=== PATIENT | female | born 1995 | race Hispanic/Latino ===

== ENCOUNTER 2017-06-04 12:15 | Emergency (ER) | payer BC, OTHER ==
[2017-06-04 14:10] LABS: Bilirubin Negative (Negative); Blood, Urine Moderate (Negative); Clarity CLEAR (Clear); Glucose, Urine (Dipstick) Negative (Negative); Leukocyte Negative (Negative); Nitrite Negative (Negative); Protein, Urine (Dipstick) Negative (Neg-Trace); Urobilinogen 0.2 mg/dL (0.2-1.0); pH, Urine 5.5 (5.0-9.0)
[2017-06-04 14:13] LABS: Bacteria/HPF Rare-Few HPF (None Seen); Hyaline Casts/LPF 0-3 HYALINE CAST LPF (0-3 Hyaline); Pathc Cast-AUWi Flag 0.29 (0-2.49); RBC/HPF 0-3 HPF (0-3); Squamous Epithelial 0-3 HPF (0-3); WBC/HPF 0-3 HPF (0-3)
[2017-06-04 14:19] LABS: #Eosinphils 0.1 thou/uL (0.0-0.7); #Lymphocytes 1.8 thou/uL (1.20-3.40); #Monocytes 0.4 thou/uL (0.11-0.59); #Neutrophils 3.7 thou/uL (1.40-6.50); %Basophils 0.5 % (0.0-1.0); %Eosinophils 1.5 % (0.0-10.0); %Lymphocytes 29.6 % (21.0-51.0); %Neutrophils 62.4 % (42.0-75.0); Hemoglobin 13.4 g/dL (12.0-16.0); Mean Corpuscular HGB CONC 34.2 g/dL (32.0-36.0); Mean Corpuscular Hemoglobin 31.5 pg (27.0-31.0); Mean Corpuscular Volume 92.1 fl (81.0-99.0); Mean Platelet Volume 8.9 fL (7.4-10.4); Platelet Count 193 thou/uL (130-400); RBC Distribution Width 12.1 % (11.5-14.5); Red Blood Cell (RBC) Count 4.26 mill/uL (4.20-5.40); White Blood Cell (WBC) Count 5.9 thou/uL (4.8-10.8)
[2017-06-04 14:42] LABS: ALT (SGPT) 16 U/L (8-55); AST (SGOT) 15 U/L (5-34); Albumin 4.4 g/dL (3.5-5.0); Alkaline Phosphatase 54 U/L (40-150); Anion Gap 8 mmol/L (10-20); BUN (Urea Nitrogen) 12 mg/dL (7.0-18.7); Bilirubin, Total 0.4 mg/dL (0.2-1.2); Calc. Creatinine Clearance 0 mL/min (70-130); Calcium 9.4 mg/dL (7.8-10.44); Carbon Dioxide 25 mmol/L (22-29); Chloride 106 mmol/L (98-107); Estimated GFR-MDRD Greater than 90; Globulin 3.1 g/dL (2.4-3.5); Glucose 99 mg/dL (70-105); Potassium 4.1 mmol/L (3.5-5.1); Protein, Total 7.5 g/dL (6.0-8.3); Sodium 135 mmol/L (136-145)
--- NOTE | 2017-06-04 17:26 | ULT ---
PELVIC ULTRASOUND: Date: 06-04-17 Comparison: 01-26-14 History: Vaginal bleeding. Technique: Multiplanar grayscale sonographic imaging of the pelvis obtained with transabdominal and e ndovaginal imaging. The ovaries are assessed with color flow and spectral analysis. FINDINGS: The right ovary measures 4.2 x 1.7 x 1.9 cm and demonstrates normal blood flow. There is a 1.4 x 1.2 cm cyst within the right ovary. Left ovary measures 2.2 x 1.6 x 1.9 cm and demonstrates normal blood flow. No ovarian or adnexal mass is seen on the left. IMPRESSION: Status post hysterectomy. Both ovaries demonstrate normal blood flow. No dominant ovarian/adnexal mas s or free fluid. POS: [facility]
== END 2017-06-04 18:46 | disposition home or self-care (01) ==
LOC: ERS 12:15
DX: N88.8 Other specified noninflammatory disorders of cervix uteri (principal)
CPT/HCPCS: 36415; 76856; 80053; 81003; 81015; 85025

== ENCOUNTER 2018-02-25 14:54 | Outpatient (CLI) | payer BC ==
--- NOTE | 2018-02-25 16:37 | ULT ---
LEFT BREAST ULTRASOUND: HISTORY: Left-sided breast pain at 11 o'clock position. FINDINGS/IMPRESSION: Sonographic evaluation of the region of pain at the 11 o'clock position in the left breast demonstrat es no abnormality. POS: OFF
== END 2018-02-25 14:55 | disposition home or self-care (01) ==
LOC: BICULT 14:54
PROVIDERS: ATTEND Advanced Practice Midwife
DX: N64.4 Mastodynia (principal)

== ENCOUNTER 2019-01-27 21:51 | Emergency (ER) | payer BC ==
--- NOTE | 2019-01-27 23:10 | RAD ---
Exam: Right shoulder 3 views: HISTORY: Pain without trauma COMPARISON: None FINDINGS: No evidence for fracture, dislocation, or other significant acute osseous abnormality. IMPRESSION: No significant acute process.
== END 2019-01-28 00:12 | disposition home or self-care (01) ==
LOC: ERS 21:51
DX: M54.10 Radiculopathy, site unspecified (principal); M79.601 Pain in right arm

== ENCOUNTER 2019-05-29 20:05 | Emergency (ER) | payer BC, SELFPAY ==
[2019-05-29] MEDS ORDERED: Ketorolac Tromethamine 30 MG/ML VIAL ONE (20:37)
[2019-05-29] MEDS ORDERED: diphenhydrAMINE 50 MG/ML VIAL ONE (20:37)
[2019-05-29] MEDS ORDERED: Metoclopramide HCl 10 MG/2 ML VIAL ONE (20:37)
--- NOTE | 2019-05-29 21:07 | CT ---
CT HEAD WITHOUT CONTRAST: 05/29/19 INDICATIONS: Headache. Ventricles have normal size and position. No evidence of mass or hemorrhage. No evidence of mass or h emorrhage. No edema. Sinuses are clear. IMPRESSION: Unremarkable head CT. POS: [facility]
== END 2019-05-29 21:58 | disposition home or self-care (01) ==
LOC: ERS 20:05
DX: R51 Headache (principal); R11.0 Nausea
CPT/HCPCS: 70450; 96365; 96375; J1200; J1885; J2765

== ENCOUNTER 2019-09-03 10:48 | Emergency (ER) | payer SELFPAY, OTHER ==
[2019-09-04 12:12] LABS: SARS-CoV-2 MS2 Positive; SARS-CoV-2 N Gene Positive; SARS-CoV-2 S Gene Positive; SARS-CoV-2 orf1ab Positive
== END 2019-09-03 11:20 | disposition home or self-care (01) ==
LOC: ERS 10:48
DX: U07.1 COVID-19 (principal)
CPT/HCPCS: 87635; 99283; U0003

== ENCOUNTER 2020-05-15 21:47 | Emergency (ER) | payer BC, OTHER ==
[2020-05-15 22:29] LABS: #Basophils 0.1 thou/uL (0.0-0.2); #Eosinphils 0.2 thou/uL (0.0-0.7); #Lymphocytes 2.9 thou/uL (1.20-3.40); #Monocytes 0.4 thou/uL (0.11-0.59); #Neutrophils 3.5 thou/uL (1.40-6.50); %Basophils 1.6 % (0.0-1.0); %Eosinophils 2.7 % (0.0-10.0); %Monocytes 5.3 % (0.0-10.0); %Neutrophils 49.5 % (42.0-75.0); Hemoglobin 12.3 g/dL (12.0-16.0); Mean Corpuscular HGB CONC 34.1 g/dL (32.0-36.0); Mean Corpuscular Hemoglobin 31.3 pg (27.0-31.0); Mean Corpuscular Volume 91.9 fL (78.0-98.0); Mean Platelet Volume 9.4 fL (7.4-10.4); Platelet Count 207 thou/uL (130-400); RBC Distribution Width 11.7 % (11.5-14.5); Red Blood Cell (RBC) Count 3.94 mill/uL (4.20-5.40)
[2020-05-15 22:48] LABS: ALT (SGPT) 23 U/L (8-55); AST (SGOT) 15 U/L (5-34); Albumin 4.1 g/dL (3.5-5.0); Alkaline Phosphatase 59 U/L (40-110); Anion Gap 15 mmol/L (10-20); BUN (Urea Nitrogen) 22 mg/dL (7.0-18.7); Bilirubin, Total 0.3 mg/dL (0.2-1.2); Calc. Creatinine Clearance 0 mL/min (70-130); Carbon Dioxide 20 mmol/L (22-29); Chloride 107 mmol/L (98-107); Glucose 111 mg/dL (70-105); Lipase 43 U/L (8-78); Potassium 3.8 mmol/L (3.5-5.1); Protein, Total 7.1 g/dL (6.0-8.3); Sodium 138 mmol/L (136-145)
[2020-05-15 22:55] LABS: Bilirubin Negative (Negative); Blood, Urine Negative (Negative); Clarity Clear (Clear); Glucose, Urine (Dipstick) Normal (Negative); Ketone, Urine Negative (Negative); Leukocyte Negative Leu/uL (Negative); Nitrite Negative (Negative); Protein, Urine (Dipstick) Negative (Neg-Trace); Specific Gravity, Urine 1.025 (1.002-1.036); Urobilinogen Normal mg/dL (Less than 2); pH, Urine 5.5 (5.0-9.0)
[2020-05-15 22:57] LABS: Pregnancy Test - Urine (BHCG) Negative (Negative); Pregu Control Background? CLEAR/WHITE (CLR/WHITE); Pregu Control Bar Appear? YES (CONTROL BAR); Specific Gravity 1.025 (1.002-1.036)
[2020-05-15] MEDS ORDERED: Ondansetron ODT 8 MG TAB ONE (23:06)
[2020-05-15] MEDS ORDERED: Mag-Al 1200 mg/1200 mg/30 ML UDCUP ONE (23:07)
[2020-05-15] MEDS ORDERED: Lidocaine Viscous Sol 2% 15 ml UD Cup ONE (23:07)
== END 2020-05-15 23:50 | disposition home or self-care (01) ==
LOC: ERS 21:47
DX: R10.13 Epigastric pain (principal); R10.11 Right upper quadrant pain
CPT/HCPCS: 36415; 80053; 81003; 81025; 83690; 85025; 99284; Q0162

== ENCOUNTER 2020-06-13 08:05 | Emergency (ER) | payer BC ==
[2020-06-13] MEDS ORDERED: Ketorolac Tromethamine 30 MG/ML VIAL ONE (08:49)
[2020-06-13] MEDS ORDERED: Ondansetron PF 4 MG/2 ML Vial ONE (08:49)
[2020-06-13] MEDS ORDERED: Lorazepam 2 MG/ML VIAL ONE (08:49)
== END 2020-06-13 09:57 | disposition home or self-care (01) ==
LOC: ERS 08:05
DX: M54.5 Low back pain (principal); W19.XXXA Unspecified fall, initial encounter
CPT/HCPCS: 96374; 96375; J1885; J2060; J2405